=== PATIENT | female | born 1940 | race Caucasian/White ===

== ENCOUNTER → 2017-11-12 02:32 | Outpatient (CLI) | payer MEDICARE, OTHER, SELFPAY ==
[2017-11-12 11:31] LABS: ALT 17 U/L (12-78); AST 14 U/L (15-37); Albumin 3.6 g/dL (3.4-5.0); Alkaline Phosphatase 78 U/L (46-116); Anion Gap 6.5 mmol/L (3-11); BUN 20 mg/dL (7-18); Bilirubin, Total 0.6 mg/dL (0.2-1.0); CO2 30.5 mmol/L (21.0-32.0); CREATININE 0.68 mg/dL (0.55-1.02); Calcium 8.3 mg/dL (8.5-10.1); Chloride 107 mmol/L (98-107); Cholesterol 175 mg/dL (50-200); Glucose 83 mg/dL (70-100); HDL Cholesterol 62 mg/dL (40-60); LDL CHOLESTEROL 94 mg/dL (<100); Potassium 3.9 mmol/L (3.5-5.1); Sodium 144 mmol/L (136-145); TSH (W/Ref FT4) 1.24 uIU/mL (0.358-3.74); Total Protein 6.4 g/dL (6.4-8.2); Triglyceride 114 mg/dL (30-150)
== END ==
PROVIDERS: PCP Family Medicine; Visit Provider Family Medicine
DX: E78.5 Hyperlipidemia, unspecified (principal); E03.9 Hypothyroidism, unspecified; I10 Essential (primary) hypertension
CPT/HCPCS: 36415; 80053; 80061; 83721; 84443

== ENCOUNTER → 2018-06-11 10:13 | Outpatient (BNVA) | payer MEDICARE, OTHER, SELFPAY | PROVIDERS: PCP Family Medicine; Referring Provider Family Medicine; Visit Provider Orthopaedic Surgery | DX: M17.12 Unilateral primary osteoarthritis, left knee (principal); Z96.651 Presence of right artificial knee joint | CPT/HCPCS: 99211; 99213 ==

== ENCOUNTER 2018-10-14 09:39 | Outpatient (CLI) | payer MEDICARE, OTHER, SELFPAY ==
--- NOTE | 2018-10-14 08:48 | DI.RAD_ITS ---
SYMPTOMS/DIAGNOSIS: LEFT KNEE PAIN BILATERAL LOWER EXTREMITIES: AP views of the lower extremities were obtained for a leg length determination. There is a knee joint prosthesis in position on the right. There are severe degenerative changes of the joints of the left knee and mild DJD of the joints of the hip. LEFT KNEE: Two views were obtained. There is marked narrowing over the cartilaginous joint space of the lateral tibiofemoral joint. Prominent hypertrophic spurring of the bones of the knee noted. CONCLUSION: DJD, predominantly involving lateral tibiofemoral joint.
== END 2018-10-14 09:59 ==
PROVIDERS: Visit Provider Student in an Organized Health Care Education/Training Program
DX: M25.562 Pain in left knee (principal); Z96.651 Presence of right artificial knee joint; M17.12 Unilateral primary osteoarthritis, left knee; M16.12 Unilateral primary osteoarthritis, left hip
CPT/HCPCS: 99214; 73560; 77073

== ENCOUNTER 2018-11-19 08:00 | Outpatient (CLI) | payer MEDICARE, OTHER, SELFPAY | END 2018-11-19 08:20 | PROVIDERS: Visit Provider Student in an Organized Health Care Education/Training Program | DX: Z01.818 Encounter for other preprocedural examination (principal); M17.12 Unilateral primary osteoarthritis, left knee; I10 Essential (primary) hypertension ==

== ENCOUNTER 2018-11-24 09:10 | Outpatient (CLI) | payer MEDICARE, OTHER, SELFPAY ==
--- NOTE | 2018-11-19 08:15 | HPE_ITS ---
Assessment and Plan (1) Primary osteoarthritis of left knee: Current visit: No Status: Chronic Plan: Educated patient on surgery covering surgical technique via models, recovery process, benefits and risks including but not limited to risk of infection, blood clot, damage to soft tissue/blood vessels/nerves in detail. After discussion patient gives verbal understanding of risks and elects to proceed with scheduling surgery. Patient had opportunity to have questions answered to their satisfaction. They will contact office if issues arise. Patient will continue to be scheduled for left TKA with Dr. Street. History of Present Illness Narrative: Ms. Rucker is a 78-year-old female who presents for pre-operative appointment for scheduled left TKA with Dr. Street. She is status post right TKA by Dr. Grant in July 2014. Patient has had known left knee DJD for yea rs and was treated conservatively. Over the years she has tried injections but was unable to have significant long-term relief. Pain is described as extreme stiffness and constant aching that is more severe the longer she engages in weight-bearing activity. In addition she has felt like the knee gives out which is happening more frequently even when walking within her home. She has been managing her discomfort by taking acetaminophen PRN. Denies any recent falls or injuries. Due to patient's continued pain despite conservative therapies patient was offered surgical intervention and was eager to proceed. Pertinent Surgical Information Denies past medical history of: stroke, cardiac issues, angina, asthma, COPD, renal issues, liver issues, hepatitis, bleeding disorders, seizures, migraines, anxiety, diabetes, autoimmune disorders Denies prior complications from surgery or anesthesia. Review of Systems Constitutional Denies fever(s), Denies frequent falls and Reports headache(s) (reports headach es with allergies; denies any recent changes) Eyes Denies change in vision ENT Reports dizziness (occasional dizziness; denies any recent falls), Denies ear discharge, Reports headache(s) (reports headaches with allergies; denies any recent changes), Denies epistaxis, Denies nasal discharge and Denies sore throat Cardiovascular Denies chest pain, Denies rapid heart rate, Denies irregular heart rhythm, Denies palpitations, Denies dyspnea, Denies dyspnea on exertion, Denies orthopnea, Denies paroxysmal nocturnal dyspnea and Denies slow heart rate Respiratory Denies cough, Denies dyspnea, Denies dyspnea on exertion and Denies wheezing Gastrointestinal Denies abdominal pain, Denies melena, Denies hematochezia, Reports constipation (takes a stool softner; denies any recent changes), Denies diarrhea, Denies nausea and Denies vomiting Genitourinary Denies hematuria, Denies dysuria and Denies urinary urgency Musculoskeletal Reports as per HPI, Denies numbness and Denies tingling Neurologic Reports dizziness (occasional dizziness; denies any recent falls), Denies frequent falls, Reports headache(s) (reports headaches with allergies; denies any recent changes), Denies numbness and Denies tingling Psychiatric Denies anxiety and Reports depression Endocrine Denies palpitations Allergic/Immunologic Denies wheezing [facility] Medical History Allergic rhinitis (Chronic) Disorder of vitamin B12 (Acute 10/29/12) Diverticulosis (Chronic) Essential hypertension (Chronic 04/02/13) Hyperlipidemia (Chronic 10/29/12) Hypothyroidism (Chronic) Irritable bowel syndrome (Chronic 11/18/17) Nonulcer dyspepsia (Chronic) Obesity (Chronic) Sleep disorder (Chronic) Spinal stenosis of lumbar region (Acute) Surgical History Appendectomy Biopsy of breast Cervical Procedure (~1979) Extraction of cataract H/O surgical procedure (Inactive) History of colonoscopy (Chronic) Oophrectomy, Right Procedures Replacement of total knee joint Status post arthroscopic knee surgery (Acute) THYROIDECTOMY Family History Mother Essential hypertension Hyperlipidemia Stroke Father Essential hypertension Stroke Sister Diabetes Essential hypertension Hyperlipidemia Sister Essential hypertension Hyperlipidemia Sister Hyperlipidemia Brother Prostate cancer Brother No problems noted. Brother Prostate cancer Hyperlipidemia Daughter Essential hypertension Social History Smoking/Tobacco Use Status: Former Tobacco Use Drug use: Never Meds Home Medications Medication Instructions Recorded Confirmed Type Viactiv Tablet Chew 1 ea PO BID tab.chew 10/05/12 11/19/18 History acetaminophen [Tylenol Extra 1 - 2 tab PO PRN 10/05/12 11/19/18 History Strength] aspirin [Low Dose Aspirin Ec] 81 mg PO DAILY tab-cap 10/05/12 11/19/18 History cyanocobalamin (vitamin B-12) 500 mcg PO DAILY 10/05/12 11/19/18 History [B-12] fluocinonide-emollient 60 gm TOPICAL bid prn PRN #1 script 09/12/15 11/19/18 History [Fluocinonide-E 0.05% Cream] olopatadine [Patanol 0.1%] 1 drp OPHTHALMIC BID 90 Days #3 09/17/16 11/19/18 History bottle trazodone 0.5 tab PO HS PRN #90 tab-cap 09/30/16 11/19/18 History betamethasone, augmented 50 gm TOPICAL PRN PRN script 11/18/17 11/19/18 History meclizine 25 mg PO TID PRN 10 Days #30 11/18/17 11/19/18 History tab-cap hydrochlorothiazide 25 mg tablet 25 mg PO DAILY #90 tab-cap 03/24/18 11/19/18 Rx sertraline 100 mg tablet 100 mg PO DAILY #90 tab-cap 04/29/18 11/19/18 Rx atorvastatin 20 mg tablet 20 mg PO DAILY #90 tab-cap 11/03/18 11/19/18 Rx fexofenadine 180 mg PO DAILY PRN #90 tab-cap 11/19/18 11/19/18 Rx levothyroxine 112 mcg tablet 112 mcg PO DAILY #90 tab 11/19/18 Rx ranitidine HCl 1 tab PO DAILY PRN #90 tab-cap 11/19/18 11/19/18 Rx Allergies Allergy/AdvReac Type Severity Reaction Status Date / Time meperidine Allergy Unknown SKIN RASH Unverified 11/19/18 09:30 Penicillins Allergy Unknown SKIN RASH Unverified 11/19/18 09:30 aspirin AdvReac Mild stomach Unverified 11/19/18 09:30 pain with high doses NSAIDS (Non-Steroidal AdvReac Mild STOMACH Unverified 11/19/18 09:30 Anti-Inflamma PAIN Sulfa (Sulfonamide AdvReac Unknown NAUSEA Unverified 11/19/18 09:30 Antibiotics) Exam Const General: cooperative and no acute distress [facility] Head: normal to inspection, normocephalic and atraumatic Ears: external ears normal General nose exam: external nose normal and no nasal discharge Face and sinus: face symmetric Mouth: oral mucosae normal, lip normal, tongue normal and moist mucous membranes Teeth and gingiva: dentition normal Throat: posterior oropharynx normal Eyes General: appearance normal, both eyes and all related structures Pupils: PERRL EOM: EOM intact bilaterally Neck Neck: trachea midline Carotids: normal carotid upstroke Lymphatic: no lymphadenopathy noted Resp Effort & Inspection: normal respiratory effort and able to speak in complete sentences Auscultation: clear to auscultation bilaterally, no rales, no rhonchi and no wheezes Cardio Heart Sounds: S1 normal, S2 normal, no murmurs, no rubs and no other Pulses: radial pulses present bilaterally GI Palpation: soft, no hepatosplenomegaly and nontender Auscultation: normal bowel sounds Skin General skin exam: no rashes or lesions noted Results Labs : 11/19/18 10:35 11/19/18 10:35
[2018-11-19 12:14] LABS: ALT 13 U/L (12-78); AST 9 U/L (15-37); Albumin 3.9 g/dL (3.4-5.0); Alkaline Phosphatase 85 U/L (46-116); Anion Gap 9.1 mmol/L (3-11); BUN 16 mg/dL (7-18); Bilirubin, Total 0.5 mg/dL (0.2-1.0); CO2 28.9 mmol/L (21.0-32.0); Calcium 9.2 mg/dL (8.5-10.1); Chloride 105 mmol/L (98-107); Glucose 86 mg/dL (70-100); Sodium 143 mmol/L (136-145); TSH (W/Ref FT4) 0.14 uIU/mL (0.36-3.74); Total Protein 7.1 g/dL (6.4-8.2)
[2018-11-19 12:35] LABS: FREE T4 1.64 ng/dL (0.76-1.46)
[2018-11-19 14:50] LABS: HCT 44.8 % (36.0-46.0); HGB 14.1 g/dL (12.0-15.5); Mean Corp. HGB Concentration 31.5 g/dL (32.0-36.0); Mean Corpuscular Hemoglobin 28.5 pg (27.0-33.0); Mean Corpuscular Volume 90.7 fL (80-95); Platelet Count 229 x1000/uL (130-400); RBC 4.94 m/cumm (4.00-5.20); White Blood Cell Count 5.26 k/cumm (4.4-10.8)
== END 2018-11-24 09:30 ==
PROVIDERS: Visit Provider Student in an Organized Health Care Education/Training Program
DX: E03.9 Hypothyroidism, unspecified (principal); E66.9 Obesity, unspecified; G47.9 Sleep disorder, unspecified; I10 Essential (primary) hypertension; G47.00 Insomnia, unspecified; M25.562 Pain in left knee; M17.12 Unilateral primary osteoarthritis, left knee; Z01.818 Encounter for other preprocedural examination; Z01.812 Encounter for preprocedural laboratory examination
CPT/HCPCS: 36415; 80053; 85027; NC; 84439; 84443

== ENCOUNTER 2018-12-01 09:52 | Inpatient (IN) | payer MEDICARE, OTHER, SELFPAY ==
[2018-12-01] VITALS (11 sets, daily range): BP systolic 79–162; BP diastolic 34–68; PULSE 43–73; RESP 10–16; TEMP 36–36.4; O2SAT 92–98
[2018-12-01] MEDS: Gabapentin 300 MG CAP PO (10:32)
[2018-12-01] MEDS: Acetaminophen 500 MG TAB 1000 MG PO ×2 (10:32→20:12)
[2018-12-01] MEDS: Lactated Ringers 1,000 ML 80 ML IV ×3 (10:45→16:41)
[2018-12-01] MEDS: Bupivacaine 0.25% Pres-Free 10 ML VIAL (11:10)
[2018-12-01] MEDS: Bupivacaine LIPOSOME/PF 133 MG/10 ML VIAL IJ ×2 (11:10→13:38)
[2018-12-01] MEDS: ceFAZolin 2 GM/50 ML BAG IVPB (12:02)
[2018-12-01] MEDS: Normal Saline 20 ML VIAL (13:38)
[2018-12-01] MEDS: Ketorolac 30 MG/ML VIAL (13:38)
[2018-12-01] MEDS: Bupivacaine 0.25% Pres-Free 30 ML VIAL (13:38)
[2018-12-01] MEDS: Atorvastatin 20 MG TAB PO (20:13)
[2018-12-01] MEDS: Olopatadine 0.1% OPHTH SOL 5 ML BTL OU (20:13)
[2018-12-01] MEDS: Aspirin E.C. 81 MG TABEC PO (20:13)
[2018-12-02] MEDS: oxyCODONE 5 MG TAB PO (02:12)
[2018-12-02 03:32] VITALS: BP 143/68; PULSE 58; RESP 18; TEMP 36; O2SAT 99
[2018-12-02] MEDS: Normal Saline Flush 10 ML SYR IV (04:31)
[2018-12-02] MEDS: HYDROmorphone 2 MG/ML VIAL 0.5 MG IVP (04:32)
[2018-12-02] MEDS: Levothyroxine 112 MCG TAB PO (06:25)
[2018-12-02 07:10] VITALS: BP 137/63; PULSE 67; RESP 18; TEMP 36.7; O2SAT 96
--- NOTE | 2018-12-02 07:29 | ROE_ITS ---
Date of service: 12/01/18 Time of Service: 14:29 Operative Note DATE OF PROCEDURE: 12/01/18 PRE-OP DIAGNOSIS: Left knee osteoarthritis POST-OP DIAGNOSIS: same PROCEDURE: Left Total Knee Replacement SURGEON: Jass Street AUTOMATIC SPOOLER OPERATOR: Jen Leal ANESTHESIA: regional and spinal ESTIMATED BLOOD LOSS: 350 PATHOLOGY: none sent TOURNIQUET TIME: 32 COMPLICATIONS: None Patient was transported to: PACU Patient's condition: stable Implants: 1. Depuy Attune Posterior Stabilized Femoral Component, Size 5 2. Depuy Attune Fixed Platform Tibial Component, Size 4 3. Depuy Attune 5x12mm Fixed, Stabilized Poly 4. Depuy Attune Patellar Component, Size 32mm Indications: I have seen Rosana in clinic for symptoms of left knee arthritis, confirmed with radiographic findings. Rosana has exhausted nonoperative methods and was having significant limitations in daily function and desired better function and less pain. I discussed the technical details of a knee replacement. I explained the risks of the procedure to include, but not limited to, bleeding, infection, pain, stiffness, fracture, damage to nerves and vessels, damage to muscles and tendons, loosening, need for repeat procedure, blood clot and cardiopulmonary demise. Despite these risks, Rosana elected to proceed. Findings: There was significant signs of arthritis throughout the knee. Procedure Description: Rosana was greeted in the preoperative holding area where the correct side was identified and marked. The consent was reviewed with the patient and signed. The history and physical was updated. All questions were answered. Preoperative mediacations were administered: Acetaminophen 1000mg, Gabapentin 300mg, and Oxycontin 10mg. An adductor canal block was then administered by the anesthesia team in the PACU. Rosana was taken back to the operating room. A spinal anesthestic was then administered. The patient was placed into the supine position on the operating room table. A nonsterile tourniquet was placed high onto the leg but only used for cementing. Posts were placed for positioning during the procedure. All bony prominences were well padded. Prophylactic antibiotics in the form of Cefazolin were administered. 1g of Tranxemic Acid was given intravenously within 30 minutes of incision. The left leg was then prepped with Chloraprep and draped in a standard fashion with impervious stockinette and extremity drape with Iodine impregnated skin protection. A timeout to confirm correct identity, side and site, procedure, allergies, anesthesia, and medical concerns was performed. With the knee in some flexion, a midline incision was made overlying the knee. Full thickness skin flaps were raised once the extensor mechanism was encountered. These were raised medially and laterally. Any bleeding was controlled with electrocautery. Once the extensor mechanism was fully exposed, a medial parapatellar arthrotomy was performed in a flexed position. All bleeding from the arthrotomy and the geniculate arteries was coagulated. A medial subperiosteal peel was performed with electrocautery to the midcoronal plane. The fat pad was removed while keeping the patellar tendon protected. The anterior distal femur synovium was removed for later visualization. The ACL and PCL were resected and the anterior horn of the lateral meniscus was transected. The knee was then flexed with the patella everted. Large osteophytes from the tibia were removed. Large osteophytes from the femur were removed. Using a step drill, and based on preoperative templating, the femoral canal was entered. This was done with a step drill without any difficulty. The intramedullary distal femoral cut guide was inserted, set to a 5 degree valgus cut and 9mm cut thickness. There was some hypoplasia of the lateral femoral c ondyle and any remnant cartilage of the medial femoral condyle was removed for appropriate thickness. The distal femoral cut guide was then held in position and pinned. With the soft tissues protected, the distal cut was performed. This was passed over a few times to ensure a planar cut. I then turned attention to the tibia. The extramedullary guide was placed onto the leg. The distal aspect was slid medial to adjust for position of center of ankle and stay in line with shaft of the tibia. Approximately 3-5 degrees of posterior slope was kept in the proximal cutting guide. The center of the guide was aligned with the PCL. The stylus was used to assess cut thickness. The lateral side was more involved radiographically but had a fairly even cut. The stylus was set for 6 mm of bentley th. This was then held in position and pinned into place with 2 additional pins and a cross pin for stability. The medial and lateral collateral ligaments were protected and the cut was performed. With this completed, it was assessed and noted to be of appropriate dimensions. The guide was removed. A spacer block was inserted and the knee was brought into extension. The 6mm spacer block prov ided full extension, without hyperextension and with stability of both the medial and lateral collateral ligaments was assessed. The pins from the femur and the tibia were then removed. The distal femur was then sized. The anterior stylus was placed onto the lateral ridge of the anterior femur. This indicated a size 5 femur. The external rotation of the guide was adjusted to 3 degrees to match the epicondylar axis, perpendicular to Tracy?s line. The 4-in-1 cutting guide was the placed. The posterior medial femur cut was evaluated and appeared of good thickness. The spacer block was inserted underneath the cutting guide and stability was confirmed in 90 degrees of flexion. An susanna wing was used to confirm appropriate position of the anterior cut to avoid notching. This cuttin g guide was ensured to be flush on the cut surface and then pinned into place with headed pins. While protecting the soft tissues, quad tendon, and collateral ligaments, the anterior and posterior cuts were performed with a saw. The central two pins were removed and the posterior and anterior chamfers were cut next. The notch-cutting guide was placed. This was pinned to lateralize the femoral component as much as possible while keeping it flush on the cut surface. This was then pinned into position. A reciprocating saw was used to make the notch cut. A rasp smoothed the cut surfaces. A trial posterior stabilized femoral component was then inserted, impacted down to the cut surfaces, and the lug holes were drilled. A provisional trial tibial component was placed and the knee was brought through range of motion. The polyethylene was trialed until there was good flexion and extension with excellent stability to the medial and lateral collaterals. The patella was tracking without thumbs. The tibial cut surface was fully exposed. The medial and lateral menisci were removed. The tibia was then sized as a 4. The tibia had been previously marked during trialing to correspond to the center of the tibial component to help with rotation. The trial was aligned to this jen, approximately rotated to the medial 1/3rd of the tibial tubercle. The trial was pinned into place. The tibia was prepared with a reamer and a keel punch. The knee was then brought into extension and the patella was measured as 25mm. Using the patellar clamp and cut guide, this was resected to a flat surface with at least 13mm of thickness remaining. The size 32mm patella fit the best. This was oriented and then clamped into position. The lugs were drilled. The trial components were removed. The final components, except for the polyethylene were opened on the back table. The periosteal and capsular tissues, especially posteriorly, around the knee were then systematically injec chris with a periarticular cocktail consisting of 50cc 0.25% Marcaine, 30mg Ketorolac, 20cc of Exparal and 50cc of injectable saline. The tourniquet was then inflated to 275mmHg. The knee was thoroughly irrigated with a pulse lavage and dried. On the back table, with the implants opened, the cement was mixed. 2 batches of antibiotic laden cement were prepared with vacuum assistance. After the cement was ready a small amount was placed on to the back side of the tibial component at the keel. A small amount was placed onto the posterior flange of the femur. Cement was manual pressurized and impregnated into the cut surface of the tibia. The tibial component was then inserted into the cut surface and impacted into position. Excess cement was removed and the component was reimpacted. Again, excess cement was removed and our attention was then turned to the femur. The femoral cut surface was once again dried and cement was manually impacted into the cut surface. The femoral component was lined with the lug holes and impacted. Excess cement was removed. It was ensured to be down against the cut surface. The trial polyethylene was then inserted and the leg was brought out i nto full extension for the duration of the cement curing process, approximately 15min. Cement was lastly manually impacted into the cut surface of the patella and the patellar button was clamped into position and held. During this process attention was turned to the gutters of the knee and for all interfaces for any excess cement. After the cement had finally cured, approximately 15min, the clamp was removed from the patella and the knee was taken through range of motion. A size 12mm polyethylene component provided the best range of motion and stability with less than 2mm gapping with medial and lateral stress and full extension without significant hyperextension. The patella was tracking with a no-thumbs technique. The trial poly was removed and once again the knee was checked for any loose, excess, or errant cement. The poly component was then inserted and impacted into position after cleaning and drying the tibial tray. The capsule was then reapproximated with a No. 1 Vicryl at multiple locations. The capsule was finally closed with a No. 2 Stratafix, barbed suture. The tourniquet was then released and the arthrotomy appeared watertight without significant bleeding. The second dosing of 1g TXA was started. Deep tissues were then reapproximated with 0 Vicryl and 2-0 Vicryl. The skin was closed with a running 3-0 Monocryl in a subcuticular fashion. This was reinforced with skin glue. A Mepilex silver dressing was applied along with a [id number] RIVERA wrap. A CryoCuff was applied. Rosana was transferred to the hospital bed without difficulty an suffering no apparent complication. Rosana has a good prognosis. Physical therapy will start today and without restrictions, weight-bearing as tolerated. Aspirin 81mg BID will be used for DVT prophylaxis.
[2018-12-02] MEDS: Olopatadine 0.1% OPHTH SOL 5 ML BTL OU ×2 (08:20→20:47)
[2018-12-02] MEDS: hydroCHLOROthiazide 25 MG TAB PO (08:21)
[2018-12-02] MEDS: Sertraline 50 MG TAB 100 MG PO (08:21)
[2018-12-02] MEDS: Aspirin E.C. 81 MG TABEC PO ×2 (08:21→20:41)
[2018-12-02] MEDS: Cyanocobalamin 500 MCG TAB PO (08:21)
[2018-12-02] MEDS: Celecoxib 100 MG CAP PO ×2 (08:21→20:40)
[2018-12-02] MEDS: Acetaminophen 500 MG TAB 1000 MG PO ×3 (08:22→20:41)
[2018-12-02] MEDS: HYDROmorphone 2 MG TAB PO ×4 (08:32→23:21)
--- NOTE | 2018-12-02 08:39 | PDOC.CMIN ---
- If Service Date Differs Date of service: 12/02/18 Time of Service: 08:39 Care Management Initial Assess REASON FOR HOSPITALIZATION:: Left Total Knee Arthroplasty PAST MEDICAL HISTORY/PAST SURGICAL HISTORY:: Medical History . Allergic rhinitis (Chronic). Disorder of vitamin B12 (Acute 10/29/12). Diverticulosis (Chronic). Essential hypertension (Chronic 04/02/13). Hyperlipidemia (Chronic 10/29/12). Hypothyroidism (Chronic). Irritable bowel syndrome (Chronic 11/18/17). Nonulcer dyspepsia (Chronic). Obesity (Chronic). Sleep disorder (Chronic). Spinal stenosis of lumbar region (Acute). Surgical History . Appendectomy. Biopsy of breast. Cervical Procedure (~1979). Extraction of cataract. H/O surgical procedure (Inactive). History of colonoscopy (Chronic). Oophrectomy, Right. Procedures. Replacement of total knee joint. Status post arthroscopic knee surgery (Acute). THYROIDECTOMY PREVIOUS FUNCTIONAL STATUS/SOCIAL/FAMILY SUPPORTS:: Rosana lives in a duplex home with her daughter. She lives all on one level and has everything she needs for her post-operative period, including a walker, crutches and elevated toilet seat. Rosana is a retired . 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 CURRENT FUNCTIONAL STATUS:: Rosana was sitting up in a chair eating her lunch when CM came to see her.She was polite and answered questions readily but she was grimacing and admitted she was having pain in her surgical knee. She stated she had worked with PT and it tired her out. Rosana plans to go home with home health PT. Her daughter lives with her so she does not anticipate the need for additional services. ADVANCE DIRECTIVES:: None on file Has patient been provided with information about the portal?: No Did the patient sign up for the portal?: No CODE STATUS:: Full Code INSURANCE COVERAGE / FINANCIAL ISSUES:: Medicare. [employer] CURRENT HOME/COMMUNITY SERVICES/EQUIPMENT:: Currently receives no services. Rosana does have a walker and crutches and elevated toilet seat. PRIMARY CARE PHYSICIAN:: Enedelia Marshall POTENTIAL DISCHARGE NEEDS:: Follow up with surgeon and discharge plan of care. PATIENT/FAMILY EDUCATION NEEDS:: Discharge plan, limitations, follow up, Ask Me Three. ANTICIPATED BARRIERS TO DISCHARGE:: none TRANSPORTATION:: via private vehicle with daughter when ready. PLAN:: Rosana will be discharged home with new home health PT. She will follow up with Dr. Cason and her discharge plan of care. CM will continue to support patient, family and discharge planning process.
--- NOTE | 2018-12-02 12:00 | PT.INTREAT ---
Date of service: 12/02/18 Time of Service: 12:00 PT Notes Inpatient Physical Therapy Treatment Note [facility] Date: 12/02/2018 PRECAUTIONS: Fall, WBAT L SUBJECTIVE: Rosana states that she is hoping to stay another night, just to feel more confident before discharging to home. She does report that her daughter will be at her home to help her. OBJECTIVE: PAIN: Patient complained of L knee pain with ther ex and transfers BED MOBILITY/TRANSFERS Sit-stand: SBA Stand-sit: SBA GAIT Assistive Device: FWW Weight bearing: WBAT L Assist: SBA Distance: 150' Deviation: I'm feeling wobbly Static standing x3 minutes with FWW support and SBA THEREX: Patient completed a LE strengthening program, in a seated position, as per flow sheet. Patient requires assist with heel slide and hip flexion exercises due to weakness. ASSESSMENT: Patient tolerated session well with complaint of L knee pain with ther ex and transfers. Patient was able to tolerate a progression in gait distance with FWW support and SBA. She would benefit from continued gait and transfer training as well as strengthening for improved mobility and activity tolerance. PLAN: Continue with PT's POC TREATMENT CODE/TIME: 25 minutes; [id number], [id number]
--- NOTE | 2018-12-02 12:11 | IN_ITS ---
Date of service: 12/02/18 Time of Service: 08:30 PT Notes Inpatient Physical Therapy Evaluation Date: 12/02/2018 Referring Doctor: Jass Street MD PT Orders: PT CONSULT: S/P L TKA Precautions: Fall. Standard. WBAT L LE. Patient Profile/Admitting Diagnosis: Patient is a 78 year old female presenting with primary osteoarthritis of the L knee S/P L TKA on POD 1. PMHX: Medical History Allergic rhinitis (Chronic) Disorder of vitamin B12 (Acute 10/29/12) Diverticulosis (Chronic) Essential hypertension (Chronic 04/02/13) Hyperlipidemia (Chronic 10/29/12) Hypothyroidism (Chronic) Irritable bowel syndrome (Chronic 11/18/17) Nonulcer dyspepsia (Chronic) Obesity (Chronic) Sleep disorder (Chronic) Spinal stenosis of lumbar region (Acute) Surgical History Appendectomy Biopsy of breast Cervical Procedure (~1979) Extraction of cataract H/O surgical procedure (Inactive) History of colonoscopy (Chronic) Oophrectomy, Right Procedures Replacement of total knee joint Status post arthroscopic knee surgery (Acute) THYROIDECTOMY Social History/Home Situation: The patient reports she lives at a two story home with her daughter and small dog. The patient states there are three steps to en ter the house. The full bathroom is on the second floor, but the patients reports there is a half-bath on the first floor. Patient reports that she was independent with all mobility ADL performance with occasional SC use. Patient reports she was driving before the surgery, and worked at [employer] until she retired in the early . Current Functional Limitations: Decreased gait speed and increased dependency for ADLs Equipment Owned/DME: The patient reports she has a four-wheeled walker and SC Subjective: The patient reported 5/10 pain while laying supine. She consented to treatment and did not report any dizziness or lightheadedness until she was standing. After performing pursed-lip breathing for a few breaths, the patient stated she felt better and was ready to continue with treatment. The patient agreed with the PTs recommendation to receive home health services. Objective: General Observation: The patient was seen laying supine with the HOB elevated. The patient no longer had an IV or bella catheter at the start of treatment. The patient had TEDs on the R LE and júnior wraps on the L LE. Mental Status: Alert and oriented x 4 Pain: 5/10, 4/10 during movement ROM: Right Lower Extremity: Hip flexion WFL. Hip abduction N/T. Knee flexion 100 deg in supine. Knee extension 0 deg. Ankle dorsiflexion WFL. Ankle plantarflexion WFL. Left Lower Extremity: Hip flexion WFL. Hip abduction N/T. Knee flexion 70 deg in sitting position. No terminal extension. Ankle dorsiflexion WFL. Ankle plantarflexion WFL. Strength: Right Lower Extremity: Hip flexors 4/5. Hip abductors N/T. Knee flexors 5/5. Knee extensors 5/5. Ankle dorsiflexors N/T. Ankle plantarflexors N/T. Left Lower Extremity:Hip flexors 3/5. Hip abductors N/T. Knee flexors 4/5. Knee extensors 3-/5. Ankle dorsiflexors N/T. Ankle plantarflexors N/T. Sensation: Intact as to pain and pressure on bilateral lower extremities. Bed Mobility/Transfers: Rolling S Supine to sit S Sit to supine S Sit to stand S Stand to sit S Bed to chair CGA Chair to bed CGA Gait: Patient tolerated 75+125 feet level-surface ambulation with front-wheeled walker, and wheel-chair follow and CGA using a reciprocal gait pattern. Patient exhibited decreased smita, step length, and step height. Patient used a step- to gait pattern on stairs using bilateral rails and standby assist. No malalignment of the joint was observed on the L LE. Balance: Static Sitting: Good Dynamic Sitting: Good Static Standing: Fair Dynamic Standing: Fair Special Tests: Mobility Limitations Standardized Measure [facility] AM-PAC 6 clicks Basic Mobility Inpatient Short Form: Raw Score: 20 CMS Score: 36% Informed Consent/Education: Patient instructed in purpose of PT consult and plan of care. Patient was instructed on correct performance of quad-set exercises and reviewed ambulation techniques with FWW. PT reinforced benefits of home health services. Assessment: Patient is POD 1 s/p L TKA. Patient presents with clinical signs and symptoms consistent with current/admitting diagnoses and post-operative status that have resulted to mobility limitations, gait instability, generalized weakness, and impairment of motor control as demonstrated by the following impairment level findings: 1. Decreased strength to L LE major muscle groups 2. Impaired activity tolerance 3. Limitation of joint range of motion in L knee Impairments are contributing to the following functional limitations: 1. Increased dependence with transfers 2. Inability to safely ambulate without assistive device and physical assistance 3. Increase completion time for mobility ADL performance 4. Increased fall risk Patient is assessed as a moderate complexity based on the following: History: Patient is a 78-year old female with a history of bilateral knee osteoarthritis. She complains of L knee pain and radiographs revealed bone on bone contact of the tibiofemoral joint. She is s/p L TKA POD 1 with obesity and dyslipidemia. Examination: Demonstrable impairment in strength, balance, and range of motion with underlying impairments and functional limitations as documented above Presentation: Evolving Decision Makin Goals: Goals 1-3 days 1. Supine-Sit independent 2. Sit-Supine independent 3. Sit-Stand independent 4. Stand-Sit independent 5. Bed-Chair independent 6. Chair-Bed independent 7. Independent gait on level surface with use of least restrictive device for at least 300 feet without report of pain nor dyspnea 8. Independent stair negotiation while holding onto bilateral rails for at least 10 steps without report of pain nor dyspnea 9. Independent with home exercise program 10. Good static and dynamic standing balance/tolerance Plan of Care/Treatment Plan: 1-2x/day, 2-3days/week x 1 week. Plan of care has been reviewed with the [employer] TENDER providing the service under Physical Therapy direction. Initiate Physical Therapy intervention for strengthening, bed mobility, transfers, gait, stairs, balance training, use of assistive device. DISCHARGE RECOMMENDATIONS: Patient will be discharged to home under the care of her daughter after all of the above goals are met. Home health has been juan mmended. TREATMENT CODE/TIME: Evaluation 07564 x 15 minutes, Therapeutic Activity 16278 x 45 minutes Thank you very much for this referral. Kaveh Alanis SPT Under the supervision of: Ambreen Jackman PT, DPT, CLT [facility]
--- NOTE | 2018-12-02 13:00 | W.PM.PROGNOT ---
Date of Service Date of service: 12/02/18 Time of Service: 13:00 Assessment and Plan (1) Primary osteoarthritis of left knee: Current visit: No Status: Chronic Rosana is a 71-year-old status post left knee replacement. She is doing very well. She has been able to make some progress physical therapy. However, she is not quite ready to be independent at home. She still needs some assistance with stairs and with ambulation. Therefore, I think she should continue to work on pain management and working with physical therapy for mobilization and strengthening. I expect that she will be able to discharged home tomorrow. She would benefit from home health services. She should continue with weightbearing as tolerated with assistive device, walker. She will be aspirin twice daily for blood clot prevention. I will also add on Celebrex. She does have an allergy to nonsteroidal anti-inflammatories for stomach pain. She does have history of reflux. However, I think it is worth trying the Celebrex out at a lower dose for pain relief. Subjective Interval history since last seen: Rosana reports been doing well. She has been able to ambulate with physical therapy today. She does have some pain, primarily posteriorly. This is been controlled with pain medication. She feels the hydromorphone is working better than the oxycodone. She denies nausea or vomiting. No chest pain or shortness of breath. Exam Narrative Exam Narrative: Sitting comfortably and eating lunch. The left leg is in full extension resting the heel on pillows. Dain wrap is clean dry and intact. She is able to flex and extend the toes and the ankle. Sensation intact light touch over the deep and superficial peroneal nerves and tibial nerve. Objective Objective Clinical Data: Vital Signs Temperature 36.7 C 12/02/18 07:10 Temperature Source Tympanic 12/02/18 07:10 Pulse 67 12/02/18 07:10 Pulse Rhythm Regular 12/01/18 23:40 Respiratory Rate 18 12/02/18 07:10 Respiratory Effort Non-Labored 12/02/18 10:01 Respiratory Depth Normal 12/02/18 10:01 Respiratory Pattern Normal 12/01/18 23:40 Blood Pressure 137/63 12/02/18 07:10 Pulse Oximetry 96 12/02/18 07:10 Respiratory End-tidal CO2 37 12/01/18 15:50 Oxygen Delivery Method Nasal Cannula 12/02/18 07:10 Oxygen Flow Rate 1 12/02/18 07:10 Pain Level 5 12/02/18 08:32 Intake & Output 12/01/18 12/02/18 12/02/18 23:59 11:59 23:59 Intake Total 1887.334 / 1887.334 550 / 550 Output Total 1400 / 1400 500 / 500 Balance 487.334 / 487.334 50 / 50 Intake: IV 1887.334 / 1887.334 100 / 100 Oral 450 / 450 Output: Urine 1050 / 1050 500 / 500 Estimated Blood Loss 350 / 350 Other: Urine Color Yellow Pale Yellow Urine Appearance Clear Clear Comment dc order per dr eastman Emesis Description None
--- NOTE | 2018-12-02 13:06 | W.PM.DS.N ---
Documented by User: Jass Eastman MD 12/07/18 13:40 Date of service: 12/03/18 Time of Service: 08:06 DS: Diagnosis Discharge Diagnosis (1) Primary osteoarthritis of left knee: Status: Chronic Discharge Plan Disposition Patient Disposition: HOME W/HOME HEALTH SERVICE Condition: Good Discharge Details Reason For Visit: LEFT KNEE DJD Admit Date/Time: 12/01/18 09:52 Admit Provider: Jass Eastman Attending Provider: Jass Eastman Primary Care Provider: Enedelia Marshall Hospital Course Hospital Course: Patient was admitted to the medical/surgical floor following the procedure. It was tolerated well without any notable medical, surgical, or anesthetic complications. Mobilization began postoperatively. The bella catheter was removed and voiding spontaneously. Vitals were stable. Physical therapy worked with the patient and was cleared for discharge home with home health services. No acute medical issues. Home Meds and New Rx's Prescriptions: New acetaminophen 500 mg tablet 1,000 mg PO Q8H PRN (Reason: pain) Qty: 90 RF: 3 hydromorphone 2 mg tablet 2 mg PO Q6H PRN (Reason: pain) Qty: 12 RF: 0 celecoxib 100 mg capsule 100 mg PO BID Qty: 60 RF: 0 Continued cyanocobalamin (vitamin B-12) [Vitamin B-12] 500 MCG tablet 500 mcg PO DAILY RF: 0 VIACTIV TABLET CHEW 1 EACH TAB.CHEW 1 ea PO BID RF: 0 fluocinonide-emollient [Fluocinonide-E] 60 GM cream 60 gm Topical bid prn PRNQty: 1 RF: 4 olopatadine [Patanol] 5 ML drops 1 drp Ophthalmic BID 90 Days Qty: 3 RF: 3 trazodone 50 MG tablet 0.5 tab PO HS PRNQty: 90 RF: 4 ranitidine HCl 300 MG tablet 1 tab PO DAILY PRNQty: 90 RF: 3 betamethasone, augmented 50 GM cream 50 gm Topical PRN PRNRF: 0 meclizine 25 MG tablet 25 mg PO TID PRN10 Days Qty: 30 RF: 1 hydrochlorothiazide 25 mg tablet 25 mg PO DAILY Qty: 90 RF: 4 sertraline [Zoloft] 100 mg tablet 100 mg PO DAILY Qty: 90 RF: 4 atorvastatin [Lipitor] 20 mg tablet 20 mg PO DAILY Qty: 90 RF: 3 levothyroxine 112 mcg tablet 112 mcg PO DAILY Qty: 90 RF: 3 fexofenadine 180 mg tablet 180 mg PO DAILY PRN (Reason: allergy symptoms) Qty: 90 RF: 3 Changed aspirin [Aspirin Low Dose] 81 MG tablet,delayed release (DR/EC) 81 mg PO BID Qty: 60 RF: 0 Discontinued acetaminophen [Tylenol Extra Strength] 500 MG tablet 1 - 2 tab PO PRN RF: 0 Discharge Instructions Instructions: Total Knee Discharge Instructions Additional Instructions: Dr. Eastman?s Total Knee Discharge Instructions Activity: The most important activity is to walk. You should try to take short walks a few times a day. It is important that when resting you work on keeping the knee straight. Avoid putting a pillow behind the knee as this will encourage flexion. Work on range of motion exercises as provided by Physical Therapy. - Start with home health physical therapy. - You should wear the BRENNEN hose on both legs for 2 weeks. Dressing: Keep the surgical dressing in place for at least one week. After the first week it may be removed and replace with light gauze and tape or nothing. It may get wet after 3 days but avoid soaking the dressing. If it gets wet, just lightly pat dry. Medications: - You should take Tylenol and anti-inflammatory Celebrex as your primary pain control medications. The Celebrex may cause some GI upset and stop this medication if you do develop any reflux or nausea symptoms. It is a specialized anti-inflammatory that is much less likely to affect your stomach. - You have been prescribed a stronger pain medication Hydromorphone for breakthrough pain, take as needed as prescribed. - Continue your stomach acid reduction agent Ranitidine to help reduce stomach acid and reflux. - You will be taking Aspirin 81mg twice a day for DVT prevention unless instructed otherwise. - If you have constipation you should take Colace or Miralax (both [id number]). It takes most people 3-4 days to have a bowel movement. Follow-up: 2 weeks 1. Encounter Date and Reason I certify that ROSANA ROACH was seen by Jass Eastman MD on 12/02/18 and that I had a [id number] encounter with this patient that meets the physician face to face encounter requirements. 2. Clinical Findings Supporting Skilled Need and Homebound Status I certify that home health services are medically necessary, include either intermittent long-term and/or physical/speech therapy, and that this patient is homebound in that absences from the home require considerable and taxing effort and are infrequent or of short duration, or are attributable to the need to receive medical care. [X] (a) Attached documentation from encounter provides clinical findings supporting skilled need and homebound status (including what assistance patient requires to leave the home). The encounter with the patient was in whole, or in part, for the following medical condition, which is the primary reason for home health care: LEFT KNEE DJD Detention: Physical Therapy: Rosana will benefit from physical therapy to address her stiffness, weakness, pain, and gait disturbance following left knee replacement. She is to work on range of motion and ambulating with assistive device to start. Speech Therapy: Homebound: Rosana is homebound due to her weakness and gait alterations. She is unable to leave her home unassisted. 3. Certification and Authentication I certify that I composed the above information based on my clinical judgement relating to this patient's medical condition and, if applicable, clinical findings communicated to me by the NPP or inpatient physician who performed the Home Health Referral. All further orders will be obtained through Dr. Eastman Stand Alone Forms: Nursing Discharge Form Referrals: Jass Eastman MD [ [facility] STAFF PHYSICIAN] - 12/17/18 11:45 am Activity:: Activity as Tolerated Equipment/Supplies:: Walker Diet:: As Tolerated Discharge Orders Discharge Orders: Discharge Order (Routine); Ordered 12/03/18 Ordered By: Jass Eastman Discharge Data Discharge Date/Time-TO BE ENTERED AT DEPARTURE: 12/03/18 10:57 DS: Data Vitals/I&O Vitals and I&O: Vital Signs Temperature 36.7 C 12/02/18 07:10 Temperature Source Tympanic 12/02/18 07:10 Pulse 67 12/02/18 07:10 Pulse Rhythm Regular 12/01/18 23:40 Respiratory Rate 18 12/02/18 07:10 Respiratory Effort Non-Labored 12/02/18 10:01 Respiratory Depth Normal 12/02/18 10:01 Respiratory Pattern Normal 12/01/18 23:40 Blood Pressure 137/63 12/02/18 07:10 Pulse Oximetry 96 12/02/18 07:10 Respiratory End-tidal CO2 37 12/01/18 15:50 Oxygen Delivery Method Nasal Cannula 12/02/18 07:10 Oxygen Flow Rate 1 12/02/18 07:10 Pain Level 5 12/02/18 08:32 Intake & Output 12/01/18 12/02/18 12/02/18 23:59 11:59 23:59 Intake Total 1887.334 / 1887.334 550 / 550 Output Total 1400 / 1400 500 / 500 Balance 487.334 / 487.334 50 / 50 Intake: IV 1887.334 / 1887.334 100 / 100 Oral 450 / 450 Output: Urine 1050 / 1050 500 / 500 Estimated Blood Loss 350 / 350 Other: Urine Color Yellow Pale Yellow Urine Appearance Clear Clear Comment dc order per dr eastman Emesis Description None PFSH Medical History Allergic rhinitis (Chronic) rhinoconjunctivitis Disorder of vitamin B12 (Acute 10/29/12) Diverticulosis (Chronic) Essential hypertension (Chronic 04/02/13) Hyperlipidemia (Chronic 10/29/12) Hypothyroidism (Chronic) GOAL LESS THAN 0.5 (tsh) H/O thyroid cancer; S/P thyroidectomy (Comi) Irritable bowel syndrome (Chronic 11/18/17) Nonulcer dyspepsia (Chronic) Obesity (Chronic) Sleep disorder (Chronic) Spinal stenosis of lumbar region (Acute) Surgical History Appendectomy Biopsy of breast RIGHT CYST X 2 (BENIGN) 1970'S Cervical Procedure (~1979) LEFT; CYSTECTOMY Extraction of cataract RIGHT 04/10/2010 LEFT 05/08/2010 H/O surgical procedure (Inactive) a. Right TKR 08/03/2014 b. 2 arthroscopies right knee - one left knee arthroscopy c. bialteral cataract extractions and IOL placement d. total thyroidectomy secondary to cancer e. right oophorectomy and left ovarian cystectomy f. excision of right breast cyst that was benign x 2 g. excision of left calcaneal spur h. colonoscopy History of colonoscopy (Chronic) Oophrectomy, Right RIGHT 1978 LEFT - cysts removed 1979 Procedures RIGHT SHOULDER MANIPULATION-09/2000 INJECTIONS FOR PAIN-RIGHT BUTTOCK 08/2001, SPINE 07/2001 BONE SPUR REMOVAL FROM HEEL BROKEN PELVIS (FRONT AND BACK) 01/30/13 Replacement of total knee joint RIGHT 08/03/14 Status post arthroscopic knee surgery (Acute) RIGHT 2001,1997 LEFT 04/22/08 THYROIDECTOMY Due to thyroid cancer 2004 Family History Mother Essential hypertension Hyperlipidemia Stroke Father Essential hypertension Stroke Sister Diabetes Essential hypertension Hyperlipidemia Sister Essential hypertension Hyperlipidemia Sister Hyperlipidemia Brother Prostate cancer Brother No problems noted. Brother Prostate cancer Hyperlipidemia Daughter Essential hypertension Social History Smoking/Tobacco Use Status: Former Tobacco Use Drug use: Never Documented by User: DEMETRIO Montoya 12/03/18 08:41 Discharge Plan Disposition Patient Disposition: HOME W/HOME HEALTH SERVICE Condition: Good Discharge Details Reason For Visit: LEFT KNEE DJD Admit Date/Time: 12/01/18 09:52 Admit Provider: aJss Eastman Attending Provider: Jass Eastman Primary Care Provider: Enedelia Marshall Hospital Course Hospital Course: Patient was admitted to the medical/surgical floor following the procedure. It was tolerated well without any notable medical, surgical, or anesthetic complications. Mobilization began postoperatively. The bella catheter was removed and voiding spontaneously. Vitals were stable. Physical therapy worked with the patient and was cleared for discharge home with home health services. No acute medical issues. Home Meds and New Rx's Prescriptions: New acetaminophen 500 mg tablet 1,000 mg PO Q8H PRN (Reason: pain) Qty: 90 RF: 3 hydromorphone 2 mg tablet 2 mg PO Q6H PRN (Reason: pain) Qty: 12 RF: 0 celecoxib 100 mg capsule 100 mg PO BID Qty: 60 RF: 0 Continued cyanocobalamin (vitamin B-12) [Vitamin B-12] 500 MCG tablet 500 mcg PO DAILY RF: 0 VIACTIV TABLET CHEW 1 EACH TAB.CHEW 1 ea PO BID RF: 0 fluocinonide-emollient [Fluocinonide-E] 60 GM cream 60 gm Topical bid prn PRNQty: 1 RF: 4 olopatadine [Patanol] 5 ML drops 1 drp Ophthalmic BID 90 Days Qty: 3 RF: 3 trazodone 50 MG tablet 0.5 tab PO HS PRNQty: 90 RF: 4 ranitidine HCl 300 MG tablet 1 tab PO DAILY PRNQty: 90 RF: 3 betamethasone, augmented 50 GM cream 50 gm Topical PRN PRNRF: 0 meclizine 25 MG tablet 25 mg PO TID PRN10 Days Qty: 30 RF: 1 hydrochlorothiazide 25 mg tablet 25 mg PO DAILY Qty: 90 RF: 4 sertraline [Zoloft] 100 mg tablet 100 mg PO DAILY Qty: 90 RF: 4 atorvastatin [Lipitor] 20 mg tablet 20 mg PO DAILY Qty: 90 RF: 3 levothyroxine 112 mcg tablet 112 mcg PO DAILY Qty: 90 RF: 3 fexofenadine 180 mg tablet 180 mg PO DAILY PRN (Reason: allergy symptoms) Qty: 90 RF: 3 Changed aspirin [Aspirin Low Dose] 81 MG tablet,delayed release (DR/EC) 81 mg PO BID Qty: 60 RF: 0 Discontinued acetaminophen [Tylenol Extra Strength] 500 MG tablet 1 - 2 tab PO PRN RF: 0 Discharge Instructions Instructions: Total Knee Discharge Instructions Additional Instructions: Dr. Eastman?s Total Knee Discharge Instructions Activity: The most important activity is to walk. You should try to take short walks a few times a day. It is important that when resting you work on keeping the knee straight. Avoid putting a pillow behind the knee as this will encourage flexion. Work on range of motion exercises as provided by Physical Therapy. - Start with home health physical therapy. - You should wear the BRENNEN hose on both legs for 2 weeks. Dressing: Keep the surgical dressing in place for at least one week. After the first week it may be removed and replace with light gauze and tape or nothing. It may get wet after 3 days but avoid soaking the dressing. If it gets wet, just lightly pat dry. Medications: - You should take Tylenol and anti-inflammatory Celebrex as your primary pain control medications. The Celebrex may cause some GI upset and stop this medication if you do develop any reflux or nausea symptoms. It is a specialized anti-inflammatory that is much less likely to affect your stomach. - You have been prescribed a stronger pain medication Hydromorphone for breakthrough pain, take as needed as prescribed. - Continue your stomach acid reduction agent Ranitidine to help reduce stomach acid and reflux. - You will be taking Aspirin 81mg twice a day for DVT prevention unless instructed otherwise. - If you have constipation you should take Colace or Miralax (both [id number]). It takes most people 3-4 days to have a bowel movement. Follow-up: 2 weeks 1. Encounter Date and Reason I certify that ROSANA ROACH was seen by Jass Eastman MD on 12/02/18 and that I had a [id number] encounter with this patient that meets the physician face to face encounter requirements. 2. Clinical Findings Supporting Skilled Need and Homebound Status I certify that home health services are medically necessary, include either intermittent long-term and/or physical/speech therapy, and that this patient is homebound in that absences from the home require considerable and taxing effort and are infrequent or of short duration, or are attributable to the need to receive medical care. [X] (a) Attached documentation from encounter provides clinical findings supporting skilled need and homebound status (including what assistance patient requires to leave the home). The encounter with the patient was in whole, or in part, for the following medical condition, which is the primary reason for home health care: LEFT KNEE DJD Detention: Physical Therapy: Rosana will benefit from physical therapy to address her stiffness, weakness, pain, and gait disturbance following left knee replacement. She is to work on range of motion and ambulating with assistive device to start. Speech Therapy: Homebound: Rosana is homebound due to her weakness and gait alterations. She is unable to leave her home unassisted. 3. Certification and Authentication I certify that I composed the above information based on my clinical judgement relating to this patient's medical condition and, if applicable, clinical findings communicated to me by the NPP or inpatient physician who performed the Home Health Referral. All further orders will be obtained through Dr. Eastman Stand Alone Forms: Nursing Discharge Form Referrals: Jass Eastman MD [ [facility] STAFF PHYSICIAN] - 12/17/18 11:45 am Activity:: Activity as Tolerated Equipment/Supplies:: Walker Diet:: As Tolerated Discharge Orders Discharge Orders: Discharge Order (Routine); Ordered 12/03/18 Ordered By: Jass Eastman Discharge Data Discharge Date/Time-TO BE ENTERED AT DEPARTURE: 12/03/18 10:57 Exam Extrem Other: Exam of the left knee today shows that she has ROM from 10 degrees to 80 degrees. Dain bandage was removed and Mepilex is clean, dry and intact. [facility] Medical History Allergic rhinitis (Chronic) rhinoconjunctivitis Disorder of vitamin B12 (Acute 10/29/12) Diverticulosis (Chronic) Essential hypertension (Chronic 04/02/13) Hyperlipidemia (Chronic 10/29/12) Hypothyroidism (Chronic) GOAL LESS THAN 0.5 (tsh) H/O thyroid cancer; S/P thyroidectomy (Comi) Irritable bowel syndrome (Chronic 11/18/17) Nonulcer dyspepsia (Chronic) Obesity (Chronic) Sleep disorder (Chronic) Spinal stenosis of lumbar region (Acute) Surgical History Appendectomy Biopsy of breast RIGHT CYST X 2 (BENIGN) 1969'S Cervical Procedure (~1979) LEFT; CYSTECTOMY Extraction of cataract RIGHT 04/10/2010 LEFT 05/08/2010 H/O surgical procedure (Inactive) a. Right TKR 08/03/2014 b. 2 arthroscopies right knee - one left knee arthroscopy c. bialteral cataract extractions and IOL placement d. total thyroidectomy secondary to cancer e. right oophorectomy and left ovarian cystectomy f. excision of right breast cyst that was benign x 2 g. excision of left calcaneal spur h. colonoscopy History of colonoscopy (Chronic) Oophrectomy, Right RIGHT 1978 LEFT - cysts removed 1979 Procedures RIGHT SHOULDER MANIPULATION-09/2000 INJECTIONS FOR PAIN-RIGHT BUTTOCK 08/2001, SPINE 07/2001 BONE SPUR REMOVAL FROM HEEL BROKEN PELVIS (FRONT AND BACK) 01/30/13 Replacement of total knee joint RIGHT 08/03/14 Status post arthroscopic knee surgery (Acute) RIGHT LEFT 04/22/08 THYROIDECTOMY Due to thyroid cancer 2004 Family History Mother Essential hypertension Hyperlipidemia Stroke Father Essential hypertension Stroke Sister Diabetes Essential hypertension Hyperlipidemia Sister Essential hypertension Hyperlipidemia Sister Hyperlipidemia Brother Prostate cancer Brother No problems noted. Brother Prostate cancer Hyperlipidemia Daughter Essential hypertension Social History Smoking/Tobacco Use Status: Former Tobacco Use Drug use: Never
--- NOTE | 2018-12-02 14:00 | CHAPLAIN ---
Fatou was sitting up in her chair when I visited. She told me about her surgery. She said it was scheduled for August, but she said she chickened out. This is her second knee surgery, so she said she knows what to expect. 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
[2018-12-02 15:35] VITALS: BP 138/70; PULSE 71; RESP 18; TEMP 36.6; O2SAT 97
--- NOTE | 2018-12-02 16:12 | PT.INDS ---
Date of service: 12/02/18 Time of Service: 16:12 PT Notes Inpatient Physical Therapy Discharge Summary Dates: [] Dates of Service: [] Date: 12/02/2018 Referring Doctor: Jass Street MD PT Orders: PT CONSULT: S/P L TKA Precautions: Fall. Standard. WBAT L LE. Patient Profile/Admitting Diagnosis: Patient is a 78 year old female presenting with primary osteoarthritis of the L knee S/P L TKA on POD 1. PMHX: Medical History Allergic rhinitis (Chronic) Disorder of vitamin B12 (Acute 10/29/12) Diverticulosis (Chronic) Essential hypertension (Chronic 04/02/13) Hyperlipidemia (Chronic 10/29/12) Hypothyroidism (Chronic) Irritable bowel syndrome (Chronic 11/18/17) Nonulcer dyspepsia (Chronic) Obesity (Chronic) Sleep disorder (Chronic) Spinal stenosis of lumbar region (Acute) Surgical History Appendectomy Biopsy of breast Cervical Procedure (~1979) Extraction of cataract H/O surgical procedure (Inactive) History of colonoscopy (Chronic) Oophrectomy, Right Procedures Replacement of total knee joint Status post arthroscopic knee surgery (Acute) THYROIDECTOMY Social History/Home Situation: The patient reports she lives at a two story home with her daughter and small dog. The patient states there are three steps to enter the house. The full bathroom is on the second floor, but the patients reports there is a half-bath on the first floor. Patient reports that she was independent with all mobility ADL performance with occasional SC use. Patient reports she was driving before the surgery, and worked at [employer] until she retired in the early . Current Functional Limitations: Decreased gait speed and increased dependency for ADLs Equipment Owned/DME: The patient reports she has a four-wheeled walker and SC Subjective: The patient reported 5/10 pain while laying supine. She consented to treatment and did not report any dizziness or lightheadedness until she was standing. After performing pursed-lip breathing for a few breaths, the patient stated she felt better and was ready to continue with treatment. The patient agreed with the PTs recommendation to receive home health services. Objective: General Observation: The patient was seen laying supine with the HOB elevated. The patient no longer had an IV or bella catheter at the start of treatment. The patient had TEDs on the R LE and júnior wraps on the L LE. Mental Status: Alert and oriented x 4 Pain: 5/10, 4/10 during movement ROM: Right Lower Extremity: Hip flexion WFL. Hip abduction N/T. Knee flexion 100 deg in supine. Knee extension 0 deg. Ankle dorsiflexion WFL. Ankle plantarflexion WFL. Left Lower Extremity: Hip flexion WFL. Hip abduction N/T. Knee flexion 70 deg in sitting position. No terminal extension. Ankle dorsiflexion WFL. Ankle plantarflexion WFL. Strength: Right Lower Extremity: Hip flexors 4/5. Hip abductors N/T. Knee flexors 5/5. Knee extensors 5/5. Ankle dorsiflexors N/T. Ankle plantarflexors N/T. Left Lower Extremity:Hip flexors 3/5. Hip abductors N/T. Knee flexors 4/5. Knee extensors 3-/5. Ankle dorsiflexors N/T. Ankle plantarflexors N/T. Sensation: Intact as to pain and pressure on bilateral lower extremities. Bed Mobility/Transfers: Rolling S Supine to sit S Sit to supine S Sit to stand S Stand to sit S Bed to chair CGA Chair to bed CGA Gait: Patient tolerated 75+125 feet level-surface ambulation with front-wheeled walker, and wheel-chair follow and CGA using a reciprocal gait pattern. Patient exhibited decreased smita, step length, and step height. Patient used a step-to gait pattern on stairs using bilateral rails and standby assist. No malalignment of the joint was observed on the L LE. Balance: Static Sitting: Good Dynamic Sitting: Good Static Standing: Fair Dynamic Standing: Fair Special Tests: Mobility Limitations Standardized Measure [facility] AM-PAC 6 clicks Basic Mobility Inpatient Short Form: Raw Score: 20 CMS Score: 36% Informed Consent/Education: Patient instructed in purpose of PT consult and plan of care. Patient was instructed on correct performance of quad-set exercises and reviewed ambulation techniques with FWW. PT reinforced benefits of home health services. Assessment: Patient is POD 1 s/p L TKA. Patient presents with clinical signs and symptoms consistent with current/admitting diagnoses and post-operative status that have resulted to mobility limitations, gait instability, generalized weakness, and impairment of motor control as demonstrated by the following impairment level findings: 1. Decreased strength to L LE major muscle groups 2. Impaired activity tolerance 3. Limitation of joint range of motion in L knee Impairments are contributing to the following functional limitations: 1. Increased dependence with transfers 2. Inability to safely ambulate without assistive device and physical assistance 3. Increase completion time for mobility ADL performance 4. Increased fall risk Patient is assessed as a moderate complexity based on the following: History: Patient is a 78-year old female with a history of bilateral knee osteoarthritis. She complains of L knee pain and radiographs revealed bone on bone contact of the tibiofemoral joint. She is s/p L TKA POD 1 with obesity and dyslipidemia. Examination: Demonstrable impairment in strength, balance, and range of motion with underlying impairments and functional limitations as documented above Presentation: Evolving Decision Makin Goals: Goals 1-3 days 1. Supine-Sit independent 2. Sit-Supine independent 3. Sit-Stand independent 4. Stand-Sit independent 5. Bed-Chair independent 6. Chair-Bed independent 7. Independent gait on level surface with use of least restrictive device for at least 300 feet without report of pain nor dyspnea 8. Independent stair negotiation while holding onto bilateral rails for at least 10 steps without report of pain nor dyspnea 9. Independent with home exercise program 10. Good static and dynamic standing balance/tolerance Plan of Care/Treatment Plan: 1-2x/day, 2-3days/week x 1 week. Plan of care has been reviewed with the [employer] providing the service under Physical Therapy direction. Initiate Physical Therapy intervention for strengthening, bed mobility, transfers, gait, stairs, balance training, use of assistive device. DISCHARGE RECOMMENDATIONS: Patient will be discharged to home under the care of her daughter after all of the above goals are met. Home health has been recommended. TREATMENT CODE/TIME: Evaluation 77431 x 15 minutes, Therapeutic Activity 49814 x 45 minutes Thank you very much for this referral. Kaveh Alanis SPT Under the supervision of: Ambreen Jackman PT, DPT, CLT [facility] SUBJECTIVE: [] OBJECTIVE: [] Pain: [] ROM: [] L UE: [] R UE: [] L LE: [] R LE: [] STRENGTH: L UE: [] R UE: [] L LE: [] R LE: [] BED MOBILITY/TRANSFERS: Supine-sit [] Sit-supine [] Sit-stand [] Stand-sit [] Bed-Chair [] Chair-bed [] GAIT: BALANCE: Static sitting Dynamic sitting Static standing Dynamic standing SPECIAL TESTS: [] ASSESSMENT: [] GOALS ( Met / Not Met): [] Goals: [] DISCHARGE PLAN/RECOMMENDATIONS: []
[2018-12-02 19:41] VITALS: BP 105/67; PULSE 82; RESP 18; TEMP 37; O2SAT 92
[2018-12-02] MEDS: Atorvastatin 20 MG TAB PO (20:40)
[2018-12-02] MEDS: traZODone 50 MG TAB 25 MG PO (23:26)
[2018-12-02 23:41] VITALS: BP 124/71; PULSE 80; RESP 17; TEMP 37.2; O2SAT 92
[2018-12-03 04:00] VITALS: BP 104/55; PULSE 78; RESP 18; TEMP 37.2; O2SAT 64
[2018-12-03 04:05] VITALS: RESP 17; O2SAT 93
[2018-12-03] MEDS: Levothyroxine 112 MCG TAB PO (06:47)
[2018-12-03 08:27] VITALS: BP 121/62; PULSE 72; RESP 18; TEMP 37.1; O2SAT 93
[2018-12-03] MEDS: Olopatadine 0.1% OPHTH SOL 5 ML BTL OU (08:57)
[2018-12-03] MEDS: Acetaminophen 500 MG TAB 1000 MG PO (08:58)
[2018-12-03] MEDS: hydroCHLOROthiazide 25 MG TAB PO (08:58)
[2018-12-03] MEDS: Aspirin E.C. 81 MG TABEC PO (08:58)
[2018-12-03] MEDS: Celecoxib 100 MG CAP PO (08:58)
[2018-12-03] MEDS: Cyanocobalamin 500 MCG TAB PO (08:58)
[2018-12-03] MEDS: Sertraline 50 MG TAB 100 MG PO (08:59)
--- NOTE | 2018-12-03 10:58 | PT.INTREAT ---
Date of service: 12/03/18 Time of Service: 10:58 PT Notes Inpatient Physical Therapy Treatment Note [facility] Date: 12/03/18 PRECAUTIONS: Fall, WBAT L SUBJECTIVE: States that she is feeling good today and is looking forward to going home to get some rest. She is agreeable to participating in PT this morning. OBJECTIVE: PAIN: Patient complained of left knee pain with ther ex and gait training BED MOBILITY/TRANSFERS Supine-sit: I with HOB flat Sit-supine: I with HOB flat Sit-stand: S Stand-sit: S GAIT Assistive Device: FWW Weight bearing: WBAT L Assist: SBA Distance: 75' x2 Deviation: Seated rest x1, slow smita THEREX: Patient completed a lower extremity strengthening and stabilization program, in a supine position, as per flow sheet. Patient is able to perform active SLR x10. STAIRS: Up/down 3?4 and 2?6 using B rails and a step to pattern with supervision ASSESSMENT: Patient tolerated session with minimal complaints of left knee pain with ther ex and gait training. Patient was able to demonstrate independence with supine<>sit transfers at this time. Patient would benefit from continued gait and transfer training as well as strengthening for improved mobility and improved activity tolerance. PLAN: As per primary PT TREATMENT CODE/TIME: 30 minutes; [id number], [id number]
--- NOTE | 2018-12-03 16:52 | PDOC.CMDIS ---
- If Service Date Differs Date of service: 12/03/18 Time of Service: 16:52 LACE Index Scoring Tool - Questions: Length of Stay (in days): 2 Acuity (Admit via E.D.?): No E.D. Visits: 0 - Answers: Total Score: 2 Risk of Readmission: Low Risk Care Management Discharge Reason for Hospitalization: Left Total Knee Arthroplasty Discharge Plan: Rosana will be discharged home with new services for PT. She will transport via private vehicle with daughter and follow up with her surgeon and discharge plan of care. Patient/Family Education Needs: Discharge plan, limitations, follow up plan, Ask Me Three:. Services Needed at Discharge: Home Health Care Services, Physical Therapy
--- NOTE | 2018-12-04 17:17 | PT.INDS ---
Date of service: 12/04/18 Time of Service: 17:18 PT Notes Inpatient Physical Therapy Discharge Summary Dates: 11/17/2018 Dates of Service: 12/02/2018 and 12/03/2018 This is a clinical summary of care provided on the duration of dates listed above. No charge was made in the completion of this documentation. Referring Doctor: Jass Street MD PT Orders: PT CONSULT: S/P L TKA Precautions: Fall. Standard. WBAT L LE. Patient Profile/Admitting Diagnosis: Patient is a 78 year old female presenting with primary osteoarthritis of the L knee S/P L TKA on POD 1. PMHX: Medical History Allergic rhinitis (Chronic) Disorder of vitamin B12 (Acute 10/29/12) Diverticulosis (Chronic) Essential hypertension (Chronic 04/02/13) Hyperlipidemia (Chronic 10/29/12) Hypothyroidism (Chronic) Irritable bowel syndrome (Chronic 11/18/17) Nonulcer dyspepsia (Chronic) Obesity (Chronic) Sleep disorder (Chronic) Spinal stenosis of lumbar region (Acute) Surgical History Appendectomy Biopsy of breast Cervical Procedure (~1979) Extraction of cataract H/O surgical procedure (Inactive) History of colonoscopy (Chronic) Oophrectomy, Right Procedures Replacement of total knee joint Status post arthroscopic knee surgery (Acute) THYROIDECTOMY Social History/Home Situation: The patient reports she lives at a two story home with her daughter and small dog. The patient states there are three steps to enter the house. The full bathroom is on the second floor, but the patients reports there is a half-bath on the first floor. Patient reports that she was independent with all mobility ADL performance with occasional SC use. Patient reports she was driving before the surgery, and worked at [employer] until she retired in the early . Current Functional Limitations: Decreased gait speed and increased dependency for ADLs Equipment Owned/DME: The patient reports she has a four-wheeled walker and SC Subjective: NT Objective: General Observation: NT Mental Status:NT Pain: NT ROM: Right Lower Extremity: Hip flexion WFL. Hip abduction N/T. Knee flexion 100 deg in supine. Knee extension 0 deg. Ankle dorsiflexion WFL. Ankle plantarflexion WFL. Left Lower Extremity: Hip flexion WFL. Hip abduction N/T. Knee flexion 70 deg in sitting position. No terminal extension. Ankle dorsiflexion WFL. Ankle plantarflexion WFL. Strength: Right Lower Extremity: Hip flexors 4/5. Hip abductors N/T. Knee flexors 5/5. Knee extensors 5/5. Ankle dorsiflexors N/T. Ankle plantarflexors N/T. Left Lower Extremity:Hip flexors 3/5. Hip abductors N/T. Knee flexors 4/5. Knee extensors 3-/5. Ankle dorsiflexors N/T. Ankle plantarflexors N/T. Sensation: Intact as to pain and pressure on bilateral lower extremities. Bed Mobility/Transfers: Rolling independent Supine to sit independent Sit to supine independent Sit to stand S Stand to sit S Bed to chair SBA Chair to bed SBA Gait: Patient tolerated 75 x2 feet level-surface ambulation with front-wheeled walker, and wheel-chair follow and CGA using a reciprocal gait pattern. Patient exhibited decreased smita, step length, and step height. Patient used a step-to gait pattern on stairs using bilateral rails and standby assist. Patient was also able to tolerate up-and-down three 4 inch steps and two 6 inch steps with onto bilateral rails using step to gait pattern with supervision assist. No malalignment of the joint was observed on the L LE. Balance: Static Sitting: Good Dynamic Sitting: Good Static Standing: Fair Dynamic Standing: Fair Assessment: Patient is POD 1 s/p L TKA. Patient presents with clinical signs and symptoms consistent with current/admitting diagnoses and post-operative status that have resulted to mobility limitations, gait instability, generalized weakness, and impairment of motor control as demonstrated by the following impairment level findings: 1. Decreased strength to L LE major muscle groups 2. Impaired activity tolerance 3. Limitation of joint range of motion in L knee Impairments are contributing to the following functional limitations: 1. Increased dependence with transfers 2. Inability to safely ambulate without assistive device and physical assistance 3. Increase completion time for mobility ADL performance 4. Increased fall risk Goals: Goals 1-3 days 1. Supine-Sit independent MET 2. Sit-Supine independent MET 3. Sit-Stand independent MET 4. Stand-Sit independent MET 5. Bed-Chair independent NOT MET 6. Chair-Bed independent NOT MET 7. Independent gait on level surface with use of least restrictive device for at least 300 feet without report of pain nor dyspnea NOT MET 8. Independent stair negotiation while holding onto bilateral rails for at least 10 steps without report of pain nor dyspnea NOT MET 9. Independent with home exercise program NOT MET 10. Good static and dynamic standing balance/tolerance NOT MET DISCHARGE RECOMMENDATIONS: Patient will be discharged to home under the care of her daughter after all of the above goals are met. Home health PT services has been recommended. TREATMENT CODE/TIME: NC. Thank you very much for this referral. Ambreen Jackman PT, DPT, CLT [facility]
== END 2018-12-03 10:57 | disposition home health service (06) | DRG 470 ==
LOC: PDS 09:52 → MS 16:18
PROVIDERS: Admitting Provider Student in an Organized Health Care Education/Training Program; Visit Provider Student in an Organized Health Care Education/Training Program
PROC: 0SRD0J9 Replacement of Left Knee Joint with Synthetic Substitute, Cemented, Open Approach (ICD-10-PCS; CPT 27447; principal; 2018-12-01 11:30)
DX: M17.12 Unilateral primary osteoarthritis, left knee (principal); M25.562 Pain in left knee; Z96.652 Presence of left artificial knee joint; G89.18 Other acute postprocedural pain; Z96.651 Presence of right artificial knee joint; I10 Essential (primary) hypertension; E78.5 Hyperlipidemia, unspecified; E03.9 Hypothyroidism, unspecified
CPT/HCPCS: 27447; 76942; 97110; 97162; 97530; NC; J0690; J1885; J2250; J2405; J3010

== ENCOUNTER 2018-12-17 12:11 | Outpatient (CLI) | payer MEDICARE, OTHER, SELFPAY ==
--- NOTE | 2018-12-17 12:07 | DI.RAD_ITS ---
SYMPTOM/DIAGNOSIS: S/P LT TKA BILATERAL LOWER EXTREMITIES: AP views of the lower extremities were obtained for leg length determination. There are moderate degenerative changes of both hips. There are bilateral total knee joint replacements in position. LEFT KNEE: Lateral view only was obtained and shows total knee joint replacement in position. The components appear well seated. No other bony abnormality is seen on this lateral view.
== END 2018-12-17 12:31 ==
PROVIDERS: Visit Provider Student in an Organized Health Care Education/Training Program
DX: Z96.653 Presence of artificial knee joint, bilateral (principal); M16.0 Bilateral primary osteoarthritis of hip; M17.12 Unilateral primary osteoarthritis, left knee; I10 Essential (primary) hypertension
CPT/HCPCS: 73560; 77073

== ENCOUNTER 2018-12-28 01:07 | Outpatient (CLI) | payer MEDICARE, OTHER, SELFPAY ==
[2018-12-28 13:41] LABS: TSH (W/Ref FT4) 0.32 uIU/mL (0.36-3.74)
[2018-12-28 14:05] LABS: FREE T4 1.33 ng/dL (0.76-1.46)
== END 2018-12-28 01:27 ==
DX: E89.0 Postprocedural hypothyroidism (principal)
CPT/HCPCS: 36415; 84439; 84443

== ENCOUNTER → 2019-01-25 13:56 | Outpatient (BNVA) | payer MEDICARE, OTHER, SELFPAY | PROVIDERS: Visit Provider Student in an Organized Health Care Education/Training Program | DX: Z47.1 Aftercare following joint replacement surgery (principal); Z96.652 Presence of left artificial knee joint; I10 Essential (primary) hypertension ==

== ENCOUNTER → 2019-03-01 13:06 | Outpatient (BNVA) | payer MEDICARE, OTHER, SELFPAY | PROVIDERS: Visit Provider Student in an Organized Health Care Education/Training Program | DX: Z47.1 Aftercare following joint replacement surgery (principal); Z96.652 Presence of left artificial knee joint; I10 Essential (primary) hypertension ==

== ENCOUNTER 2019-04-08 03:10 | Outpatient (CLI) | payer MEDICARE, OTHER, SELFPAY ==
[2019-04-08 11:31] LABS: TSH (W/Ref FT4) 0.02 uIU/mL (0.36-3.74)
[2019-04-08 11:52] LABS: FREE T4 1.46 ng/dL (0.76-1.46)
== END 2019-04-08 03:30 ==
DX: E03.9 Hypothyroidism, unspecified (principal); G47.00 Insomnia, unspecified
CPT/HCPCS: 36415; 84439; 84443

== ENCOUNTER 2019-09-29 02:35 | Outpatient (CLI) | payer MEDICARE, OTHER, SELFPAY ==
[2019-09-29 11:50] LABS: TSH (W/Ref FT4) 0.14 uIU/mL (0.36-3.74)
[2019-09-29 12:13] LABS: FREE T4 1.25 ng/dL (0.76-1.46)
== END 2019-09-29 02:55 ==
DX: E03.9 Hypothyroidism, unspecified (principal)
CPT/HCPCS: 36415; 84439; 84443

== ENCOUNTER 2019-12-23 10:28 | Outpatient (CLI) | payer MEDICARE, OTHER, SELFPAY ==
--- NOTE | 2019-12-23 09:30 | DI.RAD_ITS ---
EXAM: XR KNEE LT 2V AP,LAT CLINICAL HISTORY: f/u L TKA TECHNIQUE: COMPARISON: CR XR knee LT 1V from 12/17/2018 FINDINGS: Two views were obtained and show total knee joint replacement in position. Components appear well se ated. No other significant bony abnormality seen. IMPRESSION: TKR in position. RADIATION DOSE DELIVERED: Total DLP
== END 2019-12-23 10:48 ==
PROVIDERS: Visit Provider Student in an Organized Health Care Education/Training Program
DX: Z96.652 Presence of left artificial knee joint (principal); Z47.1 Aftercare following joint replacement surgery; M70.52 Other bursitis of knee, left knee; I10 Essential (primary) hypertension
CPT/HCPCS: 99213; 73560

== ENCOUNTER 2020-01-06 17:40 | Outpatient (REF) | payer MEDICARE, OTHER, SELFPAY ==
[2020-01-06 14:23] LABS: Bilirubin Negative (Negative); Blood Negative (Negative); Clarity Clear (Clear); Glucose Negative (Negative); Ketones Negative (Negative); Leukocyte Esterase Negative (Negative); Nitrite Negative (Negative); Specific Gravity 1.025 (1.005-1.025); Urobilinogen 0.2 EU/dL (Up TO 0.2); pH 6.5 (5-8)
== END 2020-01-06 18:00 ==
LOC: LBN 17:40
DX: R31.9 Hematuria, unspecified (principal)
CPT/HCPCS: 80053; 81003; 84443

== ENCOUNTER 2020-01-11 01:32 | Outpatient (CLI) | payer MEDICARE, OTHER, SELFPAY ==
[2020-01-11 12:38] LABS: ALT 15 U/L (14-59); AST 13 U/L (15-37); Albumin 3.6 g/dL (3.4-5.0); Alkaline Phosphatase 76 U/L (46-116); Anion Gap 8.8 mmol/L (3-11); BUN 18 mg/dL (7-18); Bilirubin, Total 0.5 mg/dL (0.2-1.0); CO2 28.2 mmol/L (21.0-32.0); CREATININE 0.63 mg/dL (0.55-1.02); Calcium 9.2 mg/dL (8.5-10.1); Chloride 104 mmol/L (98-107); Glucose 100 mg/dL (74-106); Potassium 4.1 mmol/L (3.5-5.1); Sodium 141 mmol/L (136-145); Total Protein 6.6 g/dL (6.4-8.2)
[2020-01-11 12:54] LABS: FREE T4 1.36 ng/dL (0.76-1.46)
== END 2020-01-11 01:52 ==
DX: E03.9 Hypothyroidism, unspecified (principal); I10 Essential (primary) hypertension; E66.9 Obesity, unspecified; G47.00 Insomnia, unspecified; G47.9 Sleep disorder, unspecified
CPT/HCPCS: 36415; 80053; 84439; 84443

== ENCOUNTER 2020-01-25 00:47 | Outpatient (CLI) | payer MEDICARE, OTHER, SELFPAY ==
--- NOTE | 2020-01-25 13:09 | DI.MAMMO_ITS ---
EXAM: MAMMO SCREENING CLINICAL HISTORY: screening,z12.39 TECHNIQUE: Mammograms were interpreted according to the usual protocol including computer analysis w [employer] CAD system, tomosynthesis and C-view imaging. COMPARISON: 2009 through 2016 FINDINGS: The breasts are composed of mainly fatty density , Breast Density category A. No suspicious masses or suspicious microcalcifications are seen. No skin thickening or abnormal axillary lymph nodes are seen. There has been no significant change from prior exams. IMPRESSION: BI-RADS Category 1, Negative mammogram Yearly screening mammography is recommended. Breast Density - Category A, fatty density. A negative radiographic report should not delay biopsy if a dominant or clinically suspicious mass is present. Up to ten percent of cancers are not identified on mammography. A negative report may reinforce clinical impression. Adenosis and dense breasts may obscure an underlying neoplasm. False positive reports average 6 to 10%. Patient will receive a letter notifying them of these results.
== END 2020-01-25 01:07 ==
DX: Z12.31 Encounter for screening mammogram for malignant neoplasm of breast (principal)
CPT/HCPCS: 77063; 77067

== ENCOUNTER 2021-01-12 01:47 | Outpatient (CLI) | payer MEDICARE, OTHER, SELFPAY ==
[2021-01-12 12:42] LABS: ALT 40 U/L (14-59); AST 24 U/L (15-37); Albumin 3.6 g/dL (3.4-5.0); Alkaline Phosphatase 93 U/L (46-116); Anion Gap 5.7 mmol/L (3-11); BUN 18 mg/dL (7-18); CO2 30.3 mmol/L (21.0-32.0); CREATININE 0.5 mg/dL (0.55-1.02); Calcium 9.1 mg/dL (8.5-10.1); Calculated LDL 91 mg/dL (<100); Chloride 108 mmol/L (98-107); Cholesterol 169 mg/dL (<200); Glucose 82 mg/dL (74-106); HDL Cholesterol 61 mg/dL (40-60); Potassium 3.8 mmol/L (3.5-5.1); Sodium 144 mmol/L (136-145); TSH (W/Ref FT4) 0.02 uIU/mL (0.36-3.74); Total Protein 6.7 g/dL (6.4-8.2); Triglyceride 85 mg/dL (<150)
[2021-01-12 13:02] LABS: Bilirubin, Total 0.5 mg/dL (0.2-1.0); FREE T4 1.58 ng/dL (0.76-1.46)
== END 2021-01-12 01:48 | disposition home or self-care (01) ==
LOC: LOS 01:47
DX: I10 Essential (primary) hypertension (principal); E78.5 Hyperlipidemia, unspecified; E03.9 Hypothyroidism, unspecified
CPT/HCPCS: 36415; 80053; 80061; 84439; 84443

== ENCOUNTER 2021-02-27 01:04 | Outpatient (CLI) | payer MEDICARE, OTHER, SELFPAY ==
--- NOTE | 2021-02-27 07:00 | DI.MAMMO_ITS ---
Exam(s) MAMMO SCREENING EXAM: MAMMO SCREENING CLINICAL HISTORY: screening,z12.39 TECHNIQUE: Mammograms were interpreted according to the usual protocol including computer analysis w [employer] CAD system, tomosynthesis and C-view imaging. COMPARISON: FINDINGS: The breasts are of moderate density with fairly symmetrical distribution of fibroglandular tissue. N o dominant mass or clumped microcalcification is identified in either breast. The current examinatio n is compared with previous examinations including January 2010 and there has been no gross interval change in appearance in comparison with the prior studies. IMPRESSION: No specific evidence of malignancy at this time. Routine screening examinations are suggested at yea rly intervals in this age group according to the ACS ACR guidelines. BI-RADS Category 1 - Negative Breast Density - Category B - Scattered areas of fibroglandular density
== END 2021-02-27 01:24 ==
DX: Z12.31 Encounter for screening mammogram for malignant neoplasm of breast (principal)
CPT/HCPCS: 77063; 77067

== ENCOUNTER 2021-03-09 04:10 | Outpatient (CLI) | payer MEDICARE, OTHER, SELFPAY ==
[2021-03-09 13:09] LABS: Bilirubin Negative (Negative); Blood Small (Negative); Clarity Sl Cloudy (Clear); Glucose Negative (Negative); Ketones Negative (Negative); Leukocyte Esterase Negative (Negative); Nitrite Negative (Negative); Urobilinogen 0.2 EU/dL (Up TO 0.2)
[2021-03-09 13:14] LABS: TSH (W/Ref FT4) 0.03 uIU/mL (0.36-3.74)
[2021-03-09 13:26] LABS: Epithelial Cells Moderate HPF (Negative); Other Cells Few Transitional (Negative); WBC 0-2 HPF (0-5)
[2021-03-09 13:27] LABS: Bacteria Rare HPF (Negative); C & S Indicated? No; Casts Negative LPF (Negative); Crystals Negative HPF (Negative); Mucus Trace (Negative)
[2021-03-09 13:35] LABS: FREE T4 1.54 ng/dL (0.76-1.46)
== END 2021-03-09 04:11 | disposition home or self-care (01) ==
LOC: LOS 04:10
DX: E89.0 Postprocedural hypothyroidism; R39.15 Urgency of urination; R30.0 Dysuria
CPT/HCPCS: 36415; 81003; 81015; 84439; 84443

== ENCOUNTER 2021-05-16 11:28 | Outpatient (REF) | payer MEDICARE, SELFPAY ==
[2021-05-17 14:35] LABS: COVID-19 RT-PCR UVMMC Result Negative (Negative)
== END 2021-05-16 11:29 | disposition home or self-care (01) ==
LOC: LBN 11:28
PROVIDERS: Visit Provider Family Medicine
DX: J06.9 Acute upper respiratory infection, unspecified (principal); Z20.822 Contact with and (suspected) exposure to COVID-19
CPT/HCPCS: U0003; U0005

== ENCOUNTER 2021-05-23 15:47 | Outpatient (REF) | payer MEDICARE, SELFPAY ==
[2021-05-25 13:23] LABS: COVID-19 RT-PCR UVMMC Result Negative (Negative)
== END 2021-05-23 15:48 | disposition home or self-care (01) ==
LOC: LBN 15:47
PROVIDERS: Visit Provider Family Medicine
DX: J02.9 Acute pharyngitis, unspecified (principal); Z20.822 Contact with and (suspected) exposure to COVID-19
CPT/HCPCS: U0003

== ENCOUNTER 2021-06-13 04:28 | Outpatient (CLI) | payer MEDICARE, SELFPAY ==
[2021-06-13 11:07] LABS: TSH (W/Ref FT4) 0.23 uIU/mL (0.36-3.74)
[2021-06-13 11:23] LABS: FREE T4 1.01 ng/dL (0.76-1.46)
== END 2021-06-13 04:29 | disposition home or self-care (01) ==
LOC: LBO 04:28
DX: E03.9 Hypothyroidism, unspecified (principal)
CPT/HCPCS: 36415; 84439; 84443

== ENCOUNTER 2021-12-07 01:41 | Outpatient (CLI) | payer MEDICARE, SELFPAY ==
[2021-12-07 12:49] LABS: TSH (W/Ref FT4) 0.18 uIU/mL (0.36-3.74)
[2021-12-07 13:25] LABS: FREE T4 1.22 ng/dL (0.76-1.46)
== END 2021-12-07 01:42 | disposition home or self-care (01) ==
LOC: LOS 01:41
DX: E03.9 Hypothyroidism, unspecified (principal)
CPT/HCPCS: 36415; 84439; 84443

== ENCOUNTER → 2022-03-18 08:34 | Outpatient (BNVA) | payer MEDICARE, SELFPAY | PROVIDERS: PCP Nurse Practitioner Family; Referring Provider Nurse Practitioner Family; Visit Provider Nurse Practitioner Gerontology | DX: R35.0 Frequency of micturition (principal); R35.1 Nocturia | CPT/HCPCS: 81003; 99214 ==

== ENCOUNTER 2023-02-01 15:15 | Outpatient (REF) | payer MEDICARE, SELFPAY ==
[2023-02-01 15:27] LABS: Anion Gap 9.8 mmol/L (3-11); BUN 11 mg/dL (7-18); CO2 26.2 mmol/L (21.0-32.0); CREATININE 0.7 mg/dL (0.55-1.02); Chloride 105 mmol/L (98-107); Glucose 86 mg/dL (74-106); Potassium 3.6 mmol/L (3.5-5.1); Sodium 141 mmol/L (136-145)
== END 2023-02-01 15:16 | disposition home or self-care (01) ==
LOC: LBN 15:15
PROVIDERS: PCP Nurse Practitioner Family; Visit Provider Nurse Practitioner Family
DX: U07.1 COVID-19 (principal)
CPT/HCPCS: 80048

== ENCOUNTER → 2023-08-28 09:53 | Outpatient (BNVA) | payer MEDICARE, SELFPAY | PROVIDERS: PCP Nurse Practitioner Family; Referring Provider Nurse Practitioner Family; Visit Provider Nurse Practitioner Gerontology | DX: R35.0 Frequency of micturition (principal); R32 Unspecified urinary incontinence | CPT/HCPCS: 51798; 99213 ==

== ENCOUNTER 2023-09-08 04:56 | Outpatient (CLI) | payer MEDICARE, SELFPAY ==
[2023-09-08 12:42] LABS: Abs Immature Grans 0.02 10^3/uL (0.0-0.06); Absolute Basophil Count 0.04 10^3/uL (0.0-0.2); Absolute Eosinophil Count 0.09 10^3/uL (0.0-0.7); Absolute Lymphocyte Count 1.05 10^3/uL (1.2-3.4); Absolute Monocyte Count 0.43 10^3/uL (0.1-0.8); Absolute Neutrophil Count 4.78 10^3/uL (1.2-6.7); Basophils % 0.6 %; Eosinophils % 1.4 %; HCT 41.2 % (36.0-46.0); HGB 12.9 g/dL (11.2-15.7); Immature Grans % 0.3 %; Lymphocytes % 16.4 %; MCH 29.4 pg (27.0-33.0); MCHC 31.3 % (32.0-36.0); MCV 94 fL (80-95); Monocytes % 6.7 %; Neutrophils % 74.6 %; Platelet Count 228 10^3/uL (130-400); RBC 4.39 10^6/uL (3.93-5.22); RDW 13.6 % (11.7-14.6); RDW-SD 47.3 fL; WBC 6.41 10^3/uL (4.4-10.8)
[2023-09-08 13:08] LABS: Hemoglobin A1C 5.8 % (<5.7)
[2023-09-08 13:10] LABS: Anion Gap 6.7 mmol/L (3-11); BUN 19 mg/dL (7-18); CO2 30.3 mmol/L (21.0-32.0); CREATININE 0.6 mg/dL (0.55-1.02); Calcium 8.8 mg/dL (8.5-10.1); Calculated LDL 60 mg/dL (<100); Chloride 107 mmol/L (98-107); Cholesterol 154 mg/dL (<200); Estimated GFR 89.56 (mL/min/1.73m2); Glucose 93 mg/dL (74-106); HDL Cholesterol 80 mg/dL (40-60); Potassium 3.7 mmol/L (3.5-5.1); Sodium 144 mmol/L (136-145); TSH (W/Ref FT4) 0.47 uIU/mL (0.36-3.74); Triglyceride 72 mg/dL (<150)
[2023-09-08 18:50] LABS: Hepatitis C Ab w Rflx HCV PCR Negative (Negative)
== END 2023-09-08 04:57 | disposition home or self-care (01) ==
LOC: LOS 04:56
PROVIDERS: PCP Nurse Practitioner Family; Visit Provider Nurse Practitioner Family
DX: Z00.00 Encounter for general adult medical examination without abnormal findings (principal); E89.0 Postprocedural hypothyroidism; E53.8 Deficiency of other specified B group vitamins; R73.01 Impaired fasting glucose
CPT/HCPCS: 36415; 80048; 80061; 86803; 83036; 84443; 85025

== ENCOUNTER → 2024-02-05 13:51 | Outpatient (BNVA) | payer MEDICARE, SELFPAY | PROVIDERS: PCP Nurse Practitioner Family; Visit Provider Nurse Practitioner Gerontology | DX: R32 Unspecified urinary incontinence (principal) | CPT/HCPCS: 51798; 99214 ==

== ENCOUNTER → 2024-08-17 08:32 | Outpatient (BNVA) | payer MEDICARE, SELFPAY | PROVIDERS: PCP Family Medicine; Referring Provider Family Medicine; Visit Provider Podiatrist | DX: M79.671 Pain in right foot (principal); M79.672 Pain in left foot; I73.89 Other specified peripheral vascular diseases; Q82.8 Other specified congenital malformations of skin; G30.9 Alzheimer's disease, unspecified | CPT/HCPCS: 17110 ==

== ENCOUNTER 2024-08-23 04:14 | Outpatient (CLI) | payer MEDICARE, SELFPAY ==
[2024-08-23 12:30] LABS: ALT 24 U/L (14-59); AST 25 U/L (15-37); Albumin 3.7 g/dL (3.4-5.0); Alkaline Phosphatase 91 U/L (46-116); Anion Gap 4.6 mmol/L (3-11); BUN 10 mg/dL (7-18); Bilirubin, Total 0.7 mg/dL (0.2-1.0); CO2 33.4 mmol/L (21.0-32.0); CREATININE 0.7 mg/dL (0.55-1.02); Calcium 9.2 mg/dL (8.5-10.1); Calculated LDL 89 mg/dL (<100); Chloride 104 mmol/L (98-107); Cholesterol 196 mg/dL (<200); Estimated GFR 85.76 (mL/min/1.73m2); Glucose 95 mg/dL (74-106); HDL Cholesterol 87 mg/dL (>or=50); Potassium 3.6 mmol/L (3.5-5.1); Sodium 142 mmol/L (136-145); TSH (W/Ref FT4) 50.45 uIU/mL (0.36-3.74); Total Protein 7.3 g/dL (6.4-8.2); Triglyceride 103 mg/dL (<150)
[2024-08-23 12:45] LABS: Abs Immature Grans 0.02 10^3/uL (0.0-0.06); Absolute Basophil Count 0.03 10^3/uL (0.0-0.2); Absolute Eosinophil Count 0.07 10^3/uL (0.0-0.7); Absolute Lymphocyte Count 1.07 10^3/uL (1.2-3.4); Absolute Monocyte Count 0.35 10^3/uL (0.1-0.8); Absolute Neutrophil Count 3.84 10^3/uL (1.2-6.7); Basophils % 0.6 %; Eosinophils % 1.3 %; HCT 42.8 % (36.0-46.0); HGB 13.7 g/dL (11.2-15.7); Immature Grans % 0.4 %; Lymphocytes % 19.9 %; MCH 31.2 pg (27.0-33.0); MCV 98 fL (80-95); MPV 11.7 fL (8.0-11.0); Monocytes % 6.5 %; Neutrophils % 71.3 %; Platelet Count 236 10^3/uL (130-400); RBC 4.39 10^6/uL (3.93-5.22); RDW 13.2 % (11.7-14.6); RDW-SD 46.9 fL; WBC 5.38 10^3/uL (4.4-10.8)
[2024-08-23 12:50] LABS: FREE T4 0.71 ng/dL (0.76-1.46)
== END 2024-08-23 04:15 | disposition home or self-care (01) ==
LOC: LOS 04:14
PROVIDERS: PCP Family Medicine; Visit Provider Family Medicine
DX: E89.0 Postprocedural hypothyroidism; I10 Essential (primary) hypertension; Z13.6 Encounter for screening for cardiovascular disorders; E78.5 Hyperlipidemia, unspecified; R41.89 Other symptoms and signs involving cognitive functions and awareness
CPT/HCPCS: 36415; 80053; 80061; 84439; 84443; 85025

== ENCOUNTER → 2024-09-16 08:55 | Outpatient (BNVA) | payer MEDICARE, SELFPAY | PROVIDERS: PCP Family Medicine; Visit Provider Nurse Practitioner Gerontology | DX: R35.0 Frequency of micturition (principal); N39.46 Mixed incontinence; R39.14 Feeling of incomplete bladder emptying; R39.9 Unspecified symptoms and signs involving the genitourinary system | CPT/HCPCS: 99213; 51798 ==